=== PATIENT | female | born 1970 | race Hispanic/Latino ===

== ENCOUNTER → 2018-06-02 | Outpatient (CLI) | payer MEDICARE ==
[~2018-06-02] MED LIST: OXYC-165 PO
== END | disposition home or self-care (01) ==
LOC: RAH 10:57
PROVIDERS: ATTEND Internal Medicine Hematology & Oncology
DX: N64.59 Other signs and symptoms in breast (principal); Z85.3 Personal history of malignant neoplasm of breast
CPT/HCPCS: 76641

== ENCOUNTER 2019-05-28 09:17 | Inpatient (IN) | payer MEDICARE, OTHER ==
[2019-05-28] VITALS (10 sets, daily range): BP systolic 97–136; BP diastolic 44–85
[~2019-05-28] VITALS: Ht 152.4 cm; Wt 57.2 kg
[2019-05-28] MEDS ORDERED: MORPHINE SULFATE 2 MG/ML 1ML SYG ONE (09:40)
[2019-05-28] MEDS ORDERED: ONDANSETRON HCL 4 MG/2 ML VIAL ONE ×3 (09:40→18:48)
[2019-05-28] MEDS ORDERED: IOHEXOL 350 MG/ML 100ML INFUS..BTL IV ONE (09:46)
[2019-05-28 09:50] LABS: BASOPHILS % (AUTO) 0.2 % (0.0-5.0); EOSINOPHILS % (AUTO) 0.5 % (0.0-8.0); HEMATOCRIT 31.6 % (36-48); LYMPHOCYTES % (AUTO) 18.6 % (21.0-51.0); MEAN CORPUSCULAR HEMOGLOBIN 29.8 pg (27.0-33.0); MEAN CORPUSCULAR HGB CONC 33.4 g/dL (32.0-36.0); MEAN CORPUSCULAR VOLUME 89.4 fL (79-99); MONOCYTES % (AUTO) 3.6 % (3.0-13.0); NEUTROPHILS % (AUTO) 77.1 % (40.0-77.0); PLATELET COUNT (AUTO) 198 K/uL (130-400); RED BLOOD CELL COUNT(AUTO) 3.53 MIL/uL (4.00-5.50); RED CELL DISTRIBUTION WIDTH 13.1 % (11.0-15.5); WHITE BLOOD COUNT (AUTO) 4.5 K/uL (4.8-10.8)
[2019-05-28 09:54] LABS: CREATININE 0.8 mg/dL (0.5-1.5); POTASSIUM 3.7 mmol/L (3.5-5.1)
[2019-05-28 09:59] LABS: ALBUMIN 3.5 g/dL (3.5-5.0); BILIRUBIN,TOTAL 0.3 mg/dL (0.2-1.0); TOTAL PROTEIN, SERUM 7.8 g/dL (6.0-8.3)
[2019-05-28] MEDS ORDERED: SODIUM CHLORIDE 0.9% 1000ML 1,000 ML IV ONE ×2 (10:08→13:42)
[2019-05-28 11:01] LABS: BASOPHILS % (AUTO) 0.1 % (0.0-5.0); LYMPHOCYTES % (AUTO) 6.1 % (21.0-51.0); MEAN CORPUSCULAR HGB CONC 33.2 g/dL (32.0-36.0); MEAN CORPUSCULAR VOLUME 90.3 fL (79-99); NEUTROPHILS % (AUTO) 89.8 % (40.0-77.0); PLATELET COUNT (AUTO) 183 K/uL (130-400); RED BLOOD CELL COUNT(AUTO) 3.66 MIL/uL (4.00-5.50); RED CELL DISTRIBUTION WIDTH 13.1 % (11.0-15.5); WHITE BLOOD COUNT (AUTO) 11.7 K/uL (4.8-10.8)
[2019-05-28 11:05] LABS: INR 0.96 (0.85-1.15); PARTIAL THROMBOPLASTIN TIME 25.6 SEC (26.3-35.5); PROTHROMBIN TIME 10.1 SEC (9.6-11.6)
[2019-05-28 11:12] LABS: APPEARANCE,URINE Clear (CLEAR); BILIRUBIN,URINE Negative (NEGATIVE); COLOR,URINE Yellow (YELLOW); GLUCOSE, URINE (UA) Negative (NEGATIVE); KETONES,URINE Negative (NEGATIVE); LEUKOCYTE ESTERASE ,URINE Negative (NEGATIVE); NITRATE,URINE Negative (NEGATIVE); OCCULT BLOOD,URINE Negative (NEGATIVE); PROTEIN,URINE Negative (NEGATIVE); UROBILINOGEN,URINE 0.2 mg/dL (0.2-1.0)
[2019-05-28] MEDS ORDERED: MORPHINE SULFATE 4 MG/1ML SYG ONE (13:42)
[2019-05-28] MEDS ORDERED: FAMOTIDINE/PF 20 MG/2 ML VIAL IV ONE (14:37)
[2019-05-28] MEDS ORDERED: MORPHINE SULFATE 4 MG/1ML SYG IVP PRN (19:45)
[2019-05-28 19:49] LABS: HEMATOCRIT 29.1 % (36-48)
[2019-05-28] MEDS: SODIUM CHLORIDE 0.9% 1000ML 1,000 ML IV SCH (20:10)
[2019-05-28] MEDS: FAMOTIDINE/PF 20 MG/2 ML VIAL IV SCH (20:10)
--- NOTE | 2019-05-28 20:21 | NUR ---
CRITICAL CARE GAIL MCHUGH NOTIFIED OF CONSULT.
[2019-05-29] VITALS (24 sets, daily range): BP systolic 86–128; BP diastolic 46–82
[2019-05-29 00:14] LABS: HEMATOCRIT 28.1 % (36-48)
[2019-05-29 06:13] LABS: HEMATOCRIT 28.3 % (36-48); MEAN CORPUSCULAR HEMOGLOBIN 30.7 pg (27.0-33.0); MEAN CORPUSCULAR HGB CONC 34.5 g/dL (32.0-36.0); MEAN CORPUSCULAR VOLUME 89.2 fL (79-99); NUCLEATED RED BLOOD CELLS 0.1 % (0.0-0.19); PLATELET COUNT (AUTO) 145 K/uL (130-400); RED BLOOD CELL COUNT(AUTO) 3.17 MIL/uL (4.00-5.50); RED CELL DISTRIBUTION WIDTH 12.9 % (11.0-15.5); WHITE BLOOD COUNT (AUTO) 3.2 K/uL (4.8-10.8)
[2019-05-29] MEDS: ONDANSETRON HCL 4 MG/2 ML VIAL IVP PRN ×3 (06:15→18:04)
[2019-05-29 06:24] LABS: CREATININE 0.7 mg/dL (0.5-1.5); POTASSIUM 3.8 mmol/L (3.5-5.1)
--- NOTE | 2019-05-29 07:41 | NUR ---
PT RESTING QUIETLY- DENIES ANY ACUTE PAIN AT PRESENT TIME. STATES MORPHINE IS MAKING HER FEEL AWKWARD AND IS NOW RELUCTANT TO RECEIVE PRN MORPHINE- I WILL INFORM MD ON ROUNDS
[2019-05-29] MEDS: FAMOTIDINE/PF 20 MG/2 ML VIAL IV SCH ×2 (08:58→19:55)
[2019-05-29] MEDS: SODIUM CHLORIDE 0.9% 1000ML 1,000 ML IV SCH ×2 (09:03→18:01)
[2019-05-29] MEDS ORDERED: TRAMADOL HCL 50 MG TABLET PO PRN (09:15)
--- NOTE | 2019-05-29 09:27 | NUR ---
DR HALL WAS CALLED BECAUSE PT WANTED SOMETHING FOR PAIN BUT DID NOT WANT ANYMORE MORPHINE.I CALLED DR HALL AND GAVE HER CURRENT LABS, V/S, STATUS, AND PT REQUEST FOR NO MORE MORPHINE. ORDERS WERE RECEIVED . SHORTLY AFTER TALKING TO DR HALL HER P.A. EMETERIO US MADE ROUNDS EXAMINED PT AND WAS INFORMED OF PATIENT STATUS. SHE THEN WAS OFFERED TRAMADOL FOR PAIN BUT DECLINED STATING SHE CANNOT TAKE IT DUE TO UPSET STOMACHE REACTIONS SHE HAS HAD IN THE PAST TO TRAMADOL. EMETERIO WAS INFORMED AND TRAMADOL WAS DC'D . TRAMADOL PLACED ON ALLERGY LIST/ALLERGY BAND
[2019-05-29] MEDS ORDERED: ACETAMINOPHEN 325 MG TAB ONE (09:40)
[2019-05-29] MEDS ORDERED: MORPHINE SULFATE 2 MG/ML 1ML SYG ONE (14:56)
[2019-05-29] MEDS ORDERED: MORPHINE SULFATE 2 MG/ML 1ML SYG IVP PRN (15:00)
[2019-05-29] MEDS: MORPHINE SULFATE 2 MG/ML 1ML SYG IVP PRN ×2 (15:03→21:06)
[2019-05-29] MEDS: LIDOCAINE 5% TOPICAL PATCH TP SCH (16:31)
[2019-05-29 18:35] LABS: HEMATOCRIT 28.6 % (36-48)
[2019-05-29] MEDS: ACETAMINOPHEN 325 MG TAB PO PRN (19:17)
--- NOTE | 2019-05-29 19:31 | NUR ---
cm note met with patient and states resides at home with 2 adult sons, is independent with adls and ambulation, no dme. no services. [facility] to [facility], provided information and call numbers for provider services. as she requested. and [facility] may require a walker at [place] if no iimprovement in ambulation. will followup as needed. Addendum: 05/29/19 at 1933 by GENTRY SONI CM Amended: Links added.
--- NOTE | 2019-05-29 19:31 | NUR ---
HAND OFF REPORT GIVEN TO AROLDO BROWN
--- NOTE | 2019-05-29 20:30 | NUR ---
SPOKE WITH AT THIS TIME VOICED HER WANT TO SIGN WITHDRAWAL OF VASOPRESSOR AND PROCEED WITH COMFORT MEASURES BUT UNTIL AM WHEN CHILDREN ARE PRESENT. SHE ALSO VOICED THAT SHE DOESN'T WANT TO BE BLAMED FOR THIS DECISION.
[2019-05-30] VITALS (18 sets, daily range): BP systolic 100–131; BP diastolic 59–97
[2019-05-30 05:20] LABS: BASOPHILS % (AUTO) 0.4 % (0.0-5.0); EOSINOPHILS % (AUTO) 1.6 % (0.0-8.0); HEMATOCRIT 26.5 % (36-48); LYMPHOCYTES % (AUTO) 21.7 % (21.0-51.0); MEAN CORPUSCULAR HEMOGLOBIN 30.2 pg (27.0-33.0); MEAN CORPUSCULAR HGB CONC 33.9 g/dL (32.0-36.0); MEAN CORPUSCULAR VOLUME 88.9 fL (79-99); MONOCYTES % (AUTO) 7.3 % (3.0-13.0); PLATELET COUNT (AUTO) 143 K/uL (130-400); RED BLOOD CELL COUNT(AUTO) 2.98 MIL/uL (4.00-5.50); RED CELL DISTRIBUTION WIDTH 12.9 % (11.0-15.5)
[2019-05-30] MEDS: ONDANSETRON HCL 4 MG/2 ML VIAL IVP PRN ×5 (05:28→19:51)
[2019-05-30] MEDS: MORPHINE SULFATE 2 MG/ML 1ML SYG IVP PRN ×4 (05:29→19:51)
[2019-05-30 05:40] LABS: ALBUMIN 2.8 g/dL (3.5-5.0); BILIRUBIN,TOTAL 0.4 mg/dL (0.2-1.0); CREATININE 0.7 mg/dL (0.5-1.5); POTASSIUM 3.6 mmol/L (3.5-5.1); TOTAL PROTEIN, SERUM 6.5 g/dL (6.0-8.3)
[2019-05-30] MEDS: FAMOTIDINE/PF 20 MG/2 ML VIAL IV SCH ×2 (08:32→22:01)
[2019-05-30] MEDS: LIDOCAINE 5% TOPICAL PATCH TP SCH (08:32)
--- NOTE | 2019-05-30 15:24 | NUR ---
HAND OFF REPORT GIVEN TO MÓNICA BROWN
--- NOTE | 2019-05-30 15:50 | NUR ---
TRANSFERRED TO ROOM 325
--- NOTE | 2019-05-30 16:00 | NUR ---
PATIENT RECEIVED VIA WHEELCHAIR FOR ROOM 210 TO ROOM 325. STEPHANIE WILLIS GAVE REPORT TO STEPHANIE SALES (CN). PATIENT IS STABLE AT THIS TIME WITHOUT ANY C/O PAIN.
[2019-05-31] VITALS (7 sets, daily range): BP systolic 101–115; BP diastolic 65–77
[2019-05-31 00:09] LABS: APPEARANCE,URINE Cloudy (CLEAR); BILIRUBIN,URINE Negative (NEGATIVE); COLOR,URINE Yellow (YELLOW); GLUCOSE, URINE (UA) Negative (NEGATIVE); KETONES,URINE Trace mg/dL (NEGATIVE); LEUKOCYTE ESTERASE ,URINE Large (NEGATIVE); NITRATE,URINE Negative (NEGATIVE); OCCULT BLOOD,URINE Large (NEGATIVE); PROTEIN,URINE POS 1+ mg/dL (NEGATIVE)
[2019-05-31 00:23] LABS: BACTERIA,URINE Few /HPF (None Seen); MUCUS,URINE None Seen LPF (None Seen); SQUAMOUS EPITHELIAL CELL,UR None Seen /HPF (0-2); WBC,URINE 26-50 /HPF (0-1)
[2019-05-31] MEDS: MORPHINE SULFATE 2 MG/ML 1ML SYG IVP PRN ×4 (01:12→20:32)
[2019-05-31] MEDS: ONDANSETRON HCL 4 MG/2 ML VIAL IVP PRN ×4 (01:12→20:31)
--- NOTE | 2019-05-31 07:50 | NUR ---
HEALING SKIN ABRASIONS TO BOTH LEGS Addendum: 05/31/19 at 1630 by DREA JIMENEZ RN RN Amended: Links added.
[2019-05-31] MEDS: FAMOTIDINE/PF 20 MG/2 ML VIAL IV SCH ×2 (09:34→20:31)
[2019-05-31] MEDS: LIDOCAINE 5% TOPICAL PATCH TP SCH (09:35)
[2019-05-31] MEDS: CEFTRIAXONE SODIUM 1 GM IVP SCH (11:15)
[2019-05-31] MEDS ORDERED: CEFTRIAXONE SODIUM 1 GM ONE (11:20)
[2019-05-31] MEDS: DOCUSATE SODIUM 100 MG CAP PO SCH (20:31)
[2019-06-01] MEDS: MORPHINE SULFATE 2 MG/ML 1ML SYG IVP PRN ×5 (00:44→22:14)
[2019-06-01] MEDS: ONDANSETRON HCL 4 MG/2 ML VIAL IVP PRN ×5 (00:44→22:14)
[2019-06-01 04:05] VITALS: BP 103/73
[2019-06-01] MEDS: IPRATROPIUM/ALBUTEROL SULFATE 3 ML SOLUTION IH PRN ×3 (07:11→18:49)
[2019-06-01 07:30] VITALS: BP 109/67
[2019-06-01] MEDS: LIDOCAINE 5% TOPICAL PATCH TP SCH (09:01)
[2019-06-01] MEDS: DOCUSATE SODIUM 100 MG CAP PO SCH ×2 (09:01→21:14)
[2019-06-01] MEDS: FAMOTIDINE/PF 20 MG/2 ML VIAL IV SCH ×2 (09:01→21:14)
--- NOTE | 2019-06-01 10:46 | NUR ---
Cezar TAYLOR ROUNDED ON PATIENT ORDERS FOR CBC AND BMP IN AM
[2019-06-01] MEDS: CEFTRIAXONE SODIUM 1 GM IVP SCH (11:18)
[2019-06-01 12:00] VITALS: BP 106/68
[2019-06-01 16:00] VITALS: BP 110/72
[2019-06-01 19:58] VITALS: BP 116/70
[2019-06-01 23:08] VITALS: BP 100/63
[2019-06-02 03:28] VITALS: BP 98/64
[2019-06-02 05:23] LABS: BASOPHILS % (AUTO) 0.8 % (0.0-5.0); HEMATOCRIT 30.7 % (36-48); LYMPHOCYTES % (AUTO) 19.5 % (21.0-51.0); MEAN CORPUSCULAR HEMOGLOBIN 30.4 pg (27.0-33.0); MEAN CORPUSCULAR HGB CONC 34.5 g/dL (32.0-36.0); MEAN CORPUSCULAR VOLUME 88.2 fL (79-99); NEUTROPHILS % (AUTO) 69.7 % (40.0-77.0); PLATELET COUNT (AUTO) 202 K/uL (130-400); RED BLOOD CELL COUNT(AUTO) 3.47 MIL/uL (4.00-5.50); RED CELL DISTRIBUTION WIDTH 12.8 % (11.0-15.5); WHITE BLOOD COUNT (AUTO) 3.4 K/uL (4.8-10.8)
[2019-06-02 05:31] LABS: CREATININE 0.8 mg/dL (0.5-1.5); POTASSIUM 3.8 mmol/L (3.5-5.1)
--- NOTE | 2019-06-02 06:51 | NUR ---
PATIENT UPDATE Medicated with zofran and morphine 2 mg last night for left lower abdominal pain which afforded relief .Slept well overnight, vital signs stable. New piv started on the rt hand. No further complaints voiced out.
[2019-06-02 08:20] VITALS: BP 120/81
[2019-06-02] MEDS: LIDOCAINE 5% TOPICAL PATCH TP SCH (08:32)
[2019-06-02] MEDS: FAMOTIDINE/PF 20 MG/2 ML VIAL IV SCH (08:32)
[2019-06-02] MEDS: DOCUSATE SODIUM 100 MG CAP PO SCH (08:32)
[2019-06-02] MEDS: MORPHINE SULFATE 2 MG/ML 1ML SYG IVP PRN (08:33)
[2019-06-02] MEDS: ONDANSETRON HCL 4 MG/2 ML VIAL IVP PRN (09:13)
[2019-06-02] MEDS: CEFTRIAXONE SODIUM 1 GM IVP SCH (11:11)
[2019-06-02 12:00] VITALS: BP 123/89
[2019-06-02] MEDS: ACETAMINOPHEN 325 MG TAB PO PRN (13:49)
[2019-06-02] MEDS ORDERED: SUCRALFATE 1 GM/10 ML PO SCH (14:00)
[2019-06-02] MEDS ORDERED: LEVO500T2 PO ×2 (14:04→14:05)
--- NOTE | 2019-06-02 16:16 | NUR ---
PATIENT DISCHARGED PATIENT DISCHARGED, IV DISCONTINUED, BLEEDING CONTROLLED, CATHLON INTACT, PATIENT TOLERATED WITHOUT INCIDENT.
== END 2019-06-02 16:10 | disposition home or self-care (01) | DRG 184 ==
LOC: EDH 09:17 → EDHIP 10:45 → 2BH 19:14 → 3DH 05-30 16:02
PROVIDERS: ADMIT Student in an Organized Health Care Education/Training Program; ATTEND Student in an Organized Health Care Education/Training Program
DX: S22.41XA Multiple fractures of ribs, right side, initial encounter for closed fracture (principal); D62 Acute posthemorrhagic anemia; N30.00 Acute cystitis without hematuria; S36.113A Laceration of liver, unspecified degree, initial encounter; K21.9 Gastro-esophageal reflux disease without esophagitis; W11.XXXA Fall on and from ladder, initial encounter; Y93.89 Activity, other specified; Y92.89 Other specified places as the place of occurrence of the external cause; Y99.8 Other external cause status; Z85.3 Personal history of malignant neoplasm of breast; Z90.12 Acquired absence of left breast and nipple; Z92.21 Personal history of antineoplastic chemotherapy
CPT/HCPCS: 36415; 71045; 71260; 73562; 74177; 80048; 80053; 81001; 81003; 84484; 85014; 85018; 85025; 85027; 85610; 85730; 86850; 86900; 86901; 87088; 93005; 94640; 94664; 97039; 99291; A6250; G0378; G0390; J0696; J2270; J2405; J3490; J7030; Q9967

== ENCOUNTER → 2019-06-09 | Outpatient (CLI) | payer OTHER ==
[~2019-06-09] MED LIST changes: +LEVO500T2 PO
[2019-06-09 12:57] LABS: BASOPHILS % (AUTO) 0.4 % (0.0-5.0); HEMATOCRIT 32.4 % (36-48); LYMPHOCYTES % (AUTO) 20.4 % (21.0-51.0); MEAN CORPUSCULAR HEMOGLOBIN 30.3 pg (27.0-33.0); MEAN CORPUSCULAR VOLUME 89.2 fL (79-99); NEUTROPHILS % (AUTO) 73.2 % (40.0-77.0); PLATELET COUNT (AUTO) 307 K/uL (130-400); RED BLOOD CELL COUNT(AUTO) 3.63 MIL/uL (4.00-5.50); RED CELL DISTRIBUTION WIDTH 12.8 % (11.0-15.5); WHITE BLOOD COUNT (AUTO) 3.9 K/uL (4.8-10.8)
[2019-06-09 13:03] LABS: CREATININE 0.8 mg/dL (0.5-1.5); POTASSIUM 3.7 mmol/L (3.5-5.1)
[2019-06-09 13:07] LABS: ALBUMIN 3.7 g/dL (3.5-5.0); BILIRUBIN,TOTAL 0.3 mg/dL (0.2-1.0); TOTAL PROTEIN, SERUM 8.2 g/dL (6.0-8.3)
== END | disposition home or self-care (01) ==
LOC: LAB 11:57
PROVIDERS: ATTEND Student in an Organized Health Care Education/Training Program
DX: R10.9 Unspecified abdominal pain (principal)
CPT/HCPCS: 36415; 80053; 85025

== ENCOUNTER → 2020-03-02 | Outpatient (CLI) | payer MEDICAID | END | disposition home or self-care (01) | LOC: RAH 10:50 | PROVIDERS: ATTEND Internal Medicine Hematology & Oncology | DX: R00.2 Palpitations (principal) ==

== ENCOUNTER 2022-11-19 05:40 | Inpatient (IN) | payer MEDICAID ==
[~2022-11-19] VITALS: Ht 152.4 cm; Wt 55.2 kg
[2022-11-19 06:30] LABS: BASOPHILS % (AUTO) 0.3 % (0.0-5.0); EOSINOPHILS % (AUTO) 0.3 % (0.0-8.0); HEMATOCRIT 34.5 % (36-48); LYMPHOCYTES % (AUTO) 13.8 % (21.0-51.0); MEAN CORPUSCULAR HEMOGLOBIN 29.7 pg (27.0-33.0); MEAN CORPUSCULAR HGB CONC 33.6 g/dL (32.0-36.0); MEAN CORPUSCULAR VOLUME 88.5 fL (79-99); MONOCYTES % (AUTO) 5.5 % (3.0-13.0); NEUTROPHILS % (AUTO) 79.8 % (40.0-77.0); PLATELET COUNT (AUTO) 177 K/uL (130-400); RED CELL DISTRIBUTION WIDTH 12.1 % (11.0-15.5); WHITE BLOOD COUNT (AUTO) 7.4 K/uL (4.8-10.8)
[2022-11-19] MEDS ORDERED: ONDANSETRON 4MG INJ IVP ONE (06:30)
[2022-11-19 06:31] LABS: APPEARANCE,URINE CLEAR (CLEAR); BILIRUBIN,URINE NEGATIVE (NEGATIVE); COLOR,URINE YELLOW (YELLOW); GLUCOSE, URINE (UA) NEGATIVE (NEGATIVE); KETONES,URINE NEGATIVE (NEGATIVE); LEUKOCYTE ESTERASE ,URINE 25 Leu/uL (NEGATIVE); NITRATE,URINE NEGATIVE (NEGATIVE); OCCULT BLOOD,URINE SMALL (NEGATIVE); PROTEIN,URINE 10 mg/dL (NEGATIVE); UROBILINOGEN,URINE 0.2 mg/dL (0.2-1.0)
[2022-11-19 06:50] LABS: BACTERIA,URINE RARE /HPF (None Seen); MUCUS,URINE FEW LPF (None Seen); SQUAMOUS EPITHELIAL CELL,UR RARE /HPF (0-2); WBC,URINE 0-1 /HPF (0-1)
[2022-11-19 06:51] LABS: ALBUMIN 3.6 g/dL (3.5-5.0); CREATININE 0.8 mg/dL (0.5-1.5); POTASSIUM 4.4 mmol/L (3.5-5.1); TOTAL PROTEIN, SERUM 7.6 g/dL (6.0-8.3)
[2022-11-19] MEDS ORDERED: KETOROLAC 30MG VIAL (30MG/ML) ONE (08:41)
[2022-11-19 08:55] LABS: LIPASE 1780 U/L (114-286); TRIGLYCERIDES 57 mg/dL (30-200)
[2022-11-19] MEDS: DEXTROSE 5 %-0.45 % NACL 1,000 ML IV SCH ×2 (10:00→21:08)
[2022-11-19] MEDS ORDERED: ACET650T9 PO (10:45)
[2022-11-19] MEDS ORDERED: NERA40TA PO (10:45)
[2022-11-19] MEDS: ONDANSETRON 4MG INJ IVP PRN (11:32)
[2022-11-19] MEDS: MORPHINE 2 MG SYG IVP PRN (11:32)
[2022-11-19 12:10] VITALS: BP 102/59
[2022-11-19 15:30] VITALS: BP 97/65
[2022-11-19 20:00] VITALS: BP 100/65
[2022-11-20] VITALS: BP 102/61
[2022-11-20 04:00] VITALS: BP 102/67
[2022-11-20 05:11] LABS: BASOPHILS % (AUTO) 0.6 % (0.0-5.0); EOSINOPHILS % (AUTO) 1.8 % (0.0-8.0); MEAN CORPUSCULAR HEMOGLOBIN 30.1 pg (27.0-33.0); MEAN CORPUSCULAR HGB CONC 33.6 g/dL (32.0-36.0); MEAN CORPUSCULAR VOLUME 89.5 fL (79-99); MONOCYTES % (AUTO) 11.4 % (3.0-13.0); NEUTROPHILS % (AUTO) 45.2 % (40.0-77.0); PLATELET COUNT (AUTO) 130 K/uL (130-400); RED BLOOD CELL COUNT(AUTO) 2.96 MIL/uL (4.00-5.50); RED CELL DISTRIBUTION WIDTH 12.5 % (11.0-15.5)
[2022-11-20] MEDS: DEXTROSE 5 %-0.45 % NACL 1,000 ML IV SCH ×2 (05:46→16:41)
[2022-11-20 05:53] LABS: WHITE BLOOD COUNT (AUTO) 2.2 K/uL (4.8-10.8)
[2022-11-20 05:58] LABS: CREATININE 0.9 mg/dL (0.5-1.5); MAGNESIUM 2.1 mg/dL (1.80-2.40)
[2022-11-20 06:02] LABS: BASOPHILS % (MANUAL) 4 % (0-2); LYMPHOCYTES % (MANUAL) 48 % (22-44); MAN.DIFF COMMENT-IMPRESSION MANUAL DIFFERENTIAL; SEGMENTED NEUTROPHILS % 48 % (40-70)
[2022-11-20 06:03] LABS: PLATELET MORPHOLOGY COMMENT ADEQUATE
[2022-11-20 08:00] VITALS: BP 105/74
[2022-11-20 12:00] VITALS: BP 110/68
[2022-11-20] MEDS ORDERED: GADOTERATE MEGLUMINE 10 MMOL/20 ML VIAL IV ONE ×2 (14:06→14:10)
[2022-11-20 19:42] VITALS: BP 98/57
[2022-11-20] MEDS: MORPHINE 2 MG SYG IVP PRN (20:33)
[2022-11-20] MEDS: ONDANSETRON 4MG INJ IVP PRN (20:36)
[2022-11-20 23:20] VITALS: BP 96/55
[2022-11-21] MEDS: DEXTROSE 5 %-0.45 % NACL 1,000 ML IV SCH ×4 (01:28→21:58)
[2022-11-21] MEDS: ACETAMINOPHEN 325 MG TAB PO PRN ×2 (02:58→22:29)
[2022-11-21 03:06] VITALS: BP 93/59
[2022-11-21 04:47] LABS: HEMATOCRIT 31.2 % (36-48); MEAN CORPUSCULAR HEMOGLOBIN 29.4 pg (27.0-33.0); MEAN CORPUSCULAR HGB CONC 32.7 g/dL (32.0-36.0); MEAN CORPUSCULAR VOLUME 89.9 fL (79-99); RED BLOOD CELL COUNT(AUTO) 3.47 MIL/uL (4.00-5.50); RED CELL DISTRIBUTION WIDTH 12.3 % (11.0-15.5); WHITE BLOOD COUNT (AUTO) 3.6 K/uL (4.8-10.8)
[2022-11-21 05:32] LABS: CREATININE 0.8 mg/dL (0.5-1.5); MAGNESIUM 1.9 mg/dL (1.80-2.40); PHOSPHORUS 3.8 mg/dL (2.5-4.9); POTASSIUM 3.6 mmol/L (3.5-5.1); TOTAL PROTEIN, SERUM 6.6 g/dL (6.0-8.3)
[2022-11-21 08:00] VITALS: BP 96/56
[2022-11-21 11:29] VITALS: BP 96/57
[2022-11-21 16:00] VITALS: BP_SYST 114; BP_SYST 158; BP_DIAS 60; BP_DIAS 93
[2022-11-21] MEDS ORDERED: POTASSIUM CHLORIDE 20MEQ/100ML 100 ML IV PRN (18:00)
[2022-11-21] MEDS ORDERED: LIDOCAINE HCL-MPF 1% 2ML VIAL IV PRN (18:00)
[2022-11-21] MEDS: POTASSIUM CHLORIDE 10% ELIXIR 20 MEQ/15 ML UDCUP PO PRN ×2 (18:42→21:58)
[2022-11-21 20:00] VITALS: BP 94/57
[2022-11-22] VITALS: BP 83/53
[2022-11-22 03:00] VITALS: BP 93/58
[2022-11-22 06:34] LABS: ALBUMIN 3.1 g/dL (3.5-5.0); CREATININE 0.8 mg/dL (0.5-1.5); MAGNESIUM 2.1 mg/dL (1.80-2.40); TOTAL PROTEIN, SERUM 6.8 g/dL (6.0-8.3)
[2022-11-22] MEDS: DEXTROSE 5 %-0.45 % NACL 1,000 ML IV SCH ×2 (06:40→21:14)
[2022-11-22 08:00] VITALS: BP 100/55
[2022-11-22 11:59] VITALS: BP 101/64
[2022-11-22] MEDS: ACETAMINOPHEN 325 MG TAB PO PRN ×2 (15:03→21:14)
[2022-11-22 16:00] VITALS: BP 94/51
[2022-11-22 20:00] VITALS: BP 94/50
[2022-11-23] VITALS: BP 90/48
[2022-11-23 04:00] VITALS: BP 92/49
[2022-11-23] MEDS: DEXTROSE 5 %-0.45 % NACL 1,000 ML IV SCH (04:00)
[2022-11-23 08:00] VITALS: BP 112/63
[2022-11-23 08:26] LABS: ALBUMIN 3.2 g/dL (3.5-5.0); CREATININE 0.7 mg/dL (0.5-1.5); MAGNESIUM 1.9 mg/dL (1.80-2.40); POTASSIUM 3.6 mmol/L (3.5-5.1); TOTAL PROTEIN, SERUM 6.6 g/dL (6.0-8.3)
[2022-11-23 08:31] LABS: HEMATOCRIT 31.8 % (36-48); MEAN CORPUSCULAR HEMOGLOBIN 29.1 pg (27.0-33.0); MEAN CORPUSCULAR HGB CONC 32.4 g/dL (32.0-36.0); MEAN CORPUSCULAR VOLUME 89.8 fL (79-99); RED BLOOD CELL COUNT(AUTO) 3.54 MIL/uL (4.00-5.50); RED CELL DISTRIBUTION WIDTH 12.1 % (11.0-15.5); WHITE BLOOD COUNT (AUTO) 2.7 K/uL (4.8-10.8)
[2022-11-23 12:00] VITALS: BP 98/61
[2022-11-23 16:00] VITALS: BP 98/55
[2022-11-23 20:00] VITALS: BP 96/65
[2022-11-24] VITALS (7 sets, daily range): BP systolic 91–103; BP diastolic 52–66
[2022-11-24] MEDS: ACETAMINOPHEN 325 MG TAB PO PRN (00:04)
[2022-11-24] MEDS: KCL 20 MEQ ERTAB PO PRN ×2 (13:22→15:18)
[2022-11-25 04:20] VITALS: BP 100/61
[2022-11-25 06:37] LABS: MEAN CORPUSCULAR HEMOGLOBIN 30.1 pg (27.0-33.0); MEAN CORPUSCULAR HGB CONC 33.8 g/dL (32.0-36.0); MEAN CORPUSCULAR VOLUME 89.1 fL (79-99); RED BLOOD CELL COUNT(AUTO) 3.59 MIL/uL (4.00-5.50); WHITE BLOOD COUNT (AUTO) 3.5 K/uL (4.8-10.8)
[2022-11-25 07:00] VITALS: BP 102/67
[2022-11-25 07:05] LABS: ALBUMIN 3.3 g/dL (3.5-5.0); CREATININE 0.8 mg/dL (0.5-1.5); POTASSIUM 4.2 mmol/L (3.5-5.1); TOTAL PROTEIN, SERUM 7.3 g/dL (6.0-8.3)
[2022-11-25 11:00] VITALS: BP 91/53
[2022-11-25 15:00] VITALS: BP 89/55
[2022-11-26] MEDS ORDERED: ACETAMINOPHEN 325 MG TAB PO SCH (09:00)
[2022-11-26] MEDS ORDERED: ACETAMINOPHEN 650 MG PO SCH (09:00)
[2022-11-26 13:31] LABS: HEPATITIS A IGM ANTIBODY Non-Reactive (Nonreactive); HEPATITIS B CORE IGM ANTIBODY Non-Reactive (Negative); HEPATITIS B SURFACE ANTIGEN Non-Reactive (Nonreactive); HEPATITIS C ANTIBODY Non-Reactive (Nonreactive)
== END 2022-11-25 19:30 | disposition home or self-care (01) ==
LOC: EDH 05:40 → OBSVTOIN 05:41 → EDHIP 05:41 → 3AH 12:20
PROVIDERS: ADMIT Internal Medicine Infectious Disease; ATTEND Internal Medicine Infectious Disease
DX: K80.50 Calculus of bile duct without cholangitis or cholecystitis without obstruction (principal); K85.80 Other acute pancreatitis without necrosis or infection; K52.9 Noninfective gastroenteritis and colitis, unspecified; K83.8 Other specified diseases of biliary tract; K86.1 Other chronic pancreatitis; Z85.3 Personal history of malignant neoplasm of breast; Z90.12 Acquired absence of left breast and nipple
CPT/HCPCS: 36415; 74176; 74183; 76705; 80048; 80053; 80074; 81001; 83690; 83735; 84100; 84478; 85025; 85027; G0378; J1885; J2405; J7042